=== PATIENT | male | born 1995 | race Caucasian/White ===

== ENCOUNTER 2022-06-08 06:19 | Emergency (ER) | payer BC, OTHER, SELFPAY ==
[~2022-06-08] VITALS: Ht 167.6 cm; Wt 127.0 kg
[~2022-06-08 06:19] MED LIST: NO HOME MEDS
[2022-06-08 07:01] VITALS: BP 117/79
== END 2022-06-08 07:51 | disposition left against medical advice (07) ==
LOC: ER 06:20
DX: R07.0 Pain in throat (principal); Z53.21 Procedure and treatment not carried out due to patient leaving prior to being seen by health care provider